=== PATIENT | male | born 1975 | race Caucasian/White ===

== ENCOUNTER → 2017-03-29 | Outpatient (CLI) | payer BC ==
[~2017-03-29] MED LIST: DICY20TA57 PO; HYOS0.1216 PO; OMEP40CA36 PO; ONDAN4ODT PO; PRD20T PO; SCR1T PO; TRM50T PO
--- NOTE | 2017-03-29 14:04 | Diagnostic Imaging Report ---
3 views of the right foot. INDICATION: Right foot injury. FINDINGS: There is a comminuted nondisplaced fracture involving the proximal phalanx of the right great toe. Fracture line extension to the first MTP joint is seen. There is also suggestion of fracture line extension into the interphalangeal joint. There is an elongated sclerotic lesion within the diaphysis of the first metatarsal measuring 1.7 CM in length probably related to a bony island. The joint alignment is satisfactory with no subluxation or dislocation. No radiopaque foreign body. IMPRESSION: Comminuted fracture of the proximal phalanx of the right great toe without displacement. There is however extension of the fracture lines to the MTP and the interphalangeal joints. The findings are called to Dee Gomez, nurse practitioner taking care of the patient by Dr. Salinas at time of dictation. Dictated by: Dictated on workstation # [id number]
== END ==
LOC: RAD 13:26
PROVIDERS: ATTEND Nurse Practitioner Family
DX: S92.411A Displaced fracture of proximal phalanx of right great toe, initial encounter for closed fracture (principal); X58.XXXA Exposure to other specified factors, initial encounter; Y99.8 Other external cause status
CPT/HCPCS: 73630

== ENCOUNTER 2019-08-16 13:37 | Emergency (ER) | payer BC ==
[~2019-08-16] VITALS: Ht 162 cm; Wt 111.7 kg
--- NOTE | 2019-08-16 14:17 | ED Psychosocial ---
General Chief Complaint: Substance Abuse Stated Complaint: PSYCH EVAL Nursing Triage Note: PT HAS BEEN IN CONTACT WITH [facility] IN [facility] AND WOULD LIKE TO GO THERE FOR ETOH TREATMENT. PLAN IS TO HAVE HIM THERE BY NOON TOMORROW. NEEDS MEDICAL CLEARENCE. Source: patient, family Exam Limitations: no limitations History of Present Illness Date Seen by Provider: Aug 16, 2019 Time Seen by Provider: 14:08 Initial Comments This 44-year-old white male presents with a history of long-term alcohol abuse. He is here requesting screening for treatment at [facility] in [place], [place]. Patient denies any current suicidal ideation. Patient has had no acute alcohol withdrawal symptoms. The patient denies recreational drugs other than alcohol. He is a nonsmoker. The patient has agreed to treatment for his alcohol abuse. Allergies and Home Medications Allergies Coded Allergies: famotidine (Verified Allergy, Mild, 04/05/13) Home Medications Dicyclomine Hcl 20 Mg Tablet, 1 EACH PO QID PRN, (Reported) Hyoscyamine Sulfate 0.125 Mg Tab, 1 EACH PO Q4HR PRN, (Reported) Omeprazole 40 Mg Capsule.dr, 40 MG PO DAILY Prescribed by: FOREIGN LOCKE on 04/05/132249 Ondansetron Hcl 4 Mg Tab, 4 MG PO Q4H, (Reported) Prednisone 20 Mg Tab, 40 MG PO DAILY Prescribed by: FOREIGN LOCKE on 04/05/13 233 Sucralfate 1 Gm/10 Ml Susp, 2 TSP PO ACHS Prescribed by: FOREIGN LOCKE on 04/05/132249 Tramadol Hcl 50 Mg Tab, 50 MG PO Q4H Prescribed by: FOREIGN LOCKE on 04/05/13 225 Patient Home Medication List Home Medication List Reviewed: Yes Review of Systems Constitutional: No chills, No fever; malaise EENTM: no symptoms reported Respiratory: No cough Cardiovascular: No chest pain Gastrointestinal: No abdominal pain, No diarrhea, No vomiting Genitourinary: No dysuria, No frequency Musculoskeletal: No back pain Skin: No rash Psychiatric/Neurological: See HPI Past Lzzgmoa-Lydiai-Ihhuga Hx Past Med/Social Hx: Reviewed Nursing Past Med/Soc Hx Patient Social History Alcohol Use: Regular Use Alcohol Beverage of Choice: Beer Recreational Drug Use: No Smoking Status: Never a Smoker Recent Foreign Travel: No Contact w/Someone Who Travel: No Recent Infectious Disease Expo: No Seasonal Allergies Seasonal Allergies: Yes Past Medical History Surgeries: Yes Vasectomy Respiratory: No Cardiac: Yes Hypertension Neurological: No Reproductive Disorders: No Sexually Transmitted Disease: No HIV/AIDS: No Genitourinary: No Gastrointestinal: Yes Gastroesophageal Reflux Musculoskeletal: No Endocrine: No HEENT: No Cancer: No Psychosocial: No Integumentary: Yes (h/o tattoos) Blood Disorders: No Family Medical History No Pertinent Family Hx Physical Exam Vital Signs - First Documented 08/16/19 13:51 Temp 36.9 Pulse 79 Resp 16 B/P (MAP) 201/120 (147) Pulse Ox 96 O2 Delivery Room Air Capillary Refill : Less Than 3 Seconds Height, Weight, BMI Height: '" Weight: lbs. oz. kg; 42.00 BMI Method: General Appearance: WD/WN, no apparent distress HEENT: normal ENT inspection Neck: full range of motion, supple Respiratory: normal breath sounds Cardiovascular: regular rate, rhythm Gastrointestinal: normal bowel sounds, non tender, soft Extremities: normal range of motion, non-tender Neurologic/Psychiatric: no motor/sensory deficits, alert, normal mood/affect Appearance/Memory: appropriate appearance, appropriate insight, neat Behavior/Eye Contact: cooperative, good eye contact, normal speech Thoughts/Hallucinations: normal thought pattern, no apparent hallucination Skin: normal color, warm/dry Progress/Results/Core Measures Results/Orders Lab Results Laboratory Tests Test 08/16/19 14:12 08/16/19 14:15 Range/Units White Blood Count 9.9 4.3-11.0 10^3/uL Red Blood Count 4.69 4.35-5.85 10^6/uL Hemoglobin 16.4 13.3-17.7 G/DL Hematocrit 47 40-54 % Mean Corpuscular Volume 99 80-99 FL Mean Corpuscular Hemoglobin 35 H 25-34 PG Mean Corpuscular Hemoglobin Concent 35 32-36 G/DL Red Cell Distribution Width 12.1 10.0-14.5 % Platelet Count 164 130-400 10^3/uL Mean Platelet Volume 9.7 7.4-10.4 FL Neutrophils (%) (Auto) 63 42-75 % Lymphocytes (%) (Auto) 25 12-44 % Monocytes (%) (Auto) 10 0-12 % Eosinophils (%) (Auto) 2 0-10 % Basophils (%) (Auto) 0 0-10 % Neutrophils # (Auto) 6.3 1.8-7.8 X 10^3 Lymphocytes # (Auto) 2.4 1.0-4.0 X 10^3 Monocytes # (Auto) 1.0 0.0-1.0 X 10^3 Eosinophils # (Auto) 0.2 0.0-0.3 10^3/uL Basophils # (Auto) 0.0 0.0-0.1 10^3/uL Sodium Level 141 135-145 MMOL/L Potassium Level 4.4 3.6-5.0 MMOL/L Chloride Level 104 98-107 MMOL/L Carbon Dioxide Level 23 21-32 MMOL/L Anion Gap 14 5-14 MMOL/L Blood Urea Nitrogen 10 7-18 MG/DL Creatinine 0.82 0.60-1.30 MG/DL Estimat Glomerular Filtration Rate > 60 BUN/Creatinine Ratio 12 Glucose Level 105 70-105 MG/DL Calcium Level 9.5 8.5-10.1 MG/DL Corrected Calcium 9.3 8.5-10.1 MG/DL Total Bilirubin 1.0 0.1-1.0 MG/DL Aspartate Amino Transf (AST/SGOT) 82 H 5-34 U/L Alanine Aminotransferase (ALT/SGPT) 114 H 0-55 U/L Alkaline Phosphatase 107 40-136 U/L Total Protein 7.5 6.4-8.2 GM/DL Albumin 4.3 3.2-4.5 GM/DL Salicylates Level < 5.0 L 5.0-20.0 MG/DL Acetaminophen Level < 10 L 10-30 UG/ML Serum Alcohol < 10 <10 MG/DL Urine Color YELLOW Urine Clarity CLEAR Urine pH 6.0 5-9 Urine Specific [employer] >=1.030 1.016-1.022 Urine Protein NEGATIVE NEGATIVE Urine Glucose (UA) NEGATIVE NEGATIVE Urine Ketones NEGATIVE NEGATIVE Urine Nitrite NEGATIVE NEGATIVE Urine Bilirubin NEGATIVE NEGATIVE Urine Urobilinogen 0.2 < = 1.0 MG/DL Urine Leukocyte Esterase NEGATIVE NEGATIVE Urine RBC (Auto) NEGATIVE NEGATIVE Urine RBC NONE /HPF Urine WBC NONE /HPF Urine Crystals NONE /LPF Urine Bacteria FEW H /HPF Urine Casts NONE /LPF Urine Mucus LARGE H /LPF Urine Culture Indicated NO Urine Opiates Screen NEGATIVE NEGATIVE Urine Oxycodone Screen NEGATIVE NEGATIVE Urine Methadone Screen NEGATIVE NEGATIVE Urine Propoxyphene Screen NEGATIVE NEGATIVE Urine Barbiturates Screen NEGATIVE NEGATIVE Ur Tricyclic Antidepressants Screen NEGATIVE NEGATIVE Urine Phencyclidine Screen NEGATIVE NEGATIVE Urine Amphetamines Screen NEGATIVE NEGATIVE Urine Methamphetamines Screen NEGATIVE NEGATIVE Urine Benzodiazepines Screen NEGATIVE NEGATIVE Urine Cocaine Screen NEGATIVE NEGATIVE Urine Cannabinoids Screen NEGATIVE NEGATIVE My Orders Orders - PAULIE WILBURN MD Cbc With Automated Diff (08/16/19 13:53) Comprehensive Metabolic Panel (08/16/19 13:53) Drug Screen Stat (Urine) (08/16/19 13:53) Ua Culture If Indicated (08/16/19 13:53) Ekg Tracing (08/16/19 13:53) Alcohol (08/16/19 14:59) Acetaminophen (08/16/19 14:59) Salicylate (08/16/19 14:59) Vital Signs/I&O 08/16/19 13:51 Temp 36.9 Pulse 79 Resp 16 B/P (MAP) 201/120 (147) Pulse Ox 96 O2 Delivery Room Air Blood Pressure Mean: 147 POS Progress Progress Note : Time: 14:58 Progress Note The patient's EKG demonstrated a normal sinus rhythm with a rate of 80. Patient's urine drug screen was negative. The patient's CBC and complete metabolic panel were unremarkable. Urinalysis was unremarkable. Patient's alcohol, Tylenol, and salicylate levels were normal. I spoke with the alcohol treatment program in [place] and they have accepted the patient for admission tomorrow morning. We will fax the emergency department physician record as well as the laboratory tests and EKG to [place] at this time. Departure Impression Primary Impression: Alcohol abuse Disposition: 01 HOME, SELF-CARE Condition: Unchanged Departure-Patient Inst. Decision time for Depature: 15:28 Referrals: LOBITO RODRIGUEZ MD (PCP/Family) Primary Care Physician Patient Instructions: ALCOHOL AND SUBSTANCE ABUSE Add. Discharge Instructions: Reports to [facility] for alcohol treatment tomorrow. Come back for any problems or questions. All discharge instructions reviewed with patient and/or family. Voiced understanding. PAULIE WILBURN MD Aug 16, 2019 14:17 POS
[2019-08-16 14:24] LABS: BILIRUBIN,URINE NEGATIVE (NEGATIVE); CLARITY,URINE CLEAR; COLOR,URINE YELLOW; GLUCOSE, URINE (UA) NEGATIVE (NEGATIVE); KETONES,URINE NEGATIVE (NEGATIVE); LEUKOCYTE ESTERASE ,URINE NEGATIVE (NEGATIVE); NITRITE,URINE NEGATIVE (NEGATIVE); PROTEIN,URINE NEGATIVE (NEGATIVE)
[2019-08-16 14:25] LABS: BASOPHILS % (AUTO) 0 % (0-10); EOSINOPHILS # (AUTO) 0.2 10^3/uL (0.0-0.3); EOSINOPHILS % (AUTO) 2 % (0-10); HEMATOCRIT 47 % (40-54); HEMOGLOBIN 16.4 G/DL (13.3-17.7); LYMPHOCYTES # (AUTO) 2.4 X 10^3 (1.0-4.0); LYMPHOCYTES % (AUTO) 25 % (12-44); MEAN CORPUSCULAR HEMOGLOBIN 35 PG (25-34); MEAN CORPUSCULAR HGB CONC 35 G/DL (32-36); MEAN CORPUSCULAR VOLUME 99 FL (80-99); MEAN PLATELET VOLUME 9.7 FL (7.4-10.4); MONOCYTES % (AUTO) 10 % (0-12); NEUTROPHILS # (AUTO) 6.3 X 10^3 (1.8-7.8); NEUTROPHILS % (AUTO) 63 % (42-75); PLATELET COUNT 164 10^3/uL (130-400); RED CELL DISTRIBUTION WIDTH 12.1 % (10.0-14.5); WHITE BLOOD COUNT 9.9 10^3/uL (4.3-11.0)
[2019-08-16 14:36] LABS: BACTERIA,URINE FEW /HPF
[2019-08-16 14:41] LABS: ALANINE AMINOTRANSFERASE 114 U/L (0-55); ALBUMIN 4.3 GM/DL (3.2-4.5); ALKALINE PHOSPHATASE 107 U/L (40-136); BUN/CREATININE RATIO 12; CALCIUM 9.5 MG/DL (8.5-10.1); CARBON DIOXIDE 23 MMOL/L (21-32); CHLORIDE 104 MMOL/L (98-107); CREATININE SERUM 0.82 MG/DL (0.60-1.30); GFR ESTIMATED > 60; GLUCOSE 105 MG/DL (70-105); POTASSIUM 4.4 MMOL/L (3.6-5.0); SODIUM 141 MMOL/L (135-145); TOTAL PROTEIN 7.5 GM/DL (6.4-8.2)
[2019-08-16 14:42] LABS: AMPHETAMINE SCREEN, URINE NEGATIVE (NEGATIVE); BARBITURATE SCREEN URINE NEGATIVE (NEGATIVE); BENZODIAZEPINES SCREEN URINE NEGATIVE (NEGATIVE); CANNABINOID SCREEN, URINE NEGATIVE (NEGATIVE); COCAINE SCREEN URINE NEGATIVE (NEGATIVE); METHADONE STAT NEGATIVE (NEGATIVE); METHAMPHETAMINE SCREEN URINE S NEGATIVE (NEGATIVE); OPIATE SCREEN URINE NEGATIVE (NEGATIVE); OXYCODONE STAT NEGATIVE (NEGATIVE); PROPOXYPHENE STAT NEGATIVE (NEGATIVE); TRICYCLIC ANTIDEPRESSANTS SCRE NEGATIVE (NEGATIVE)
[2019-08-16 15:14] LABS: SALICYLATE < 5.0 MG/DL (5.0-20.0)
[2019-08-16 15:15] LABS: ACETAMINOPHEN < 10 UG/ML (10-30)
[2019-08-16 15:39] VITALS: BP 165/88
== END 2019-08-16 15:39 | disposition home or self-care (01) ==
LOC: EDUNIT# 13:37 → ER 13:38
DX: F10.10 Alcohol abuse, uncomplicated (principal); I10 Essential (primary) hypertension; K21.9 Gastro-esophageal reflux disease without esophagitis; Z88.8 Allergy status to other drugs, medicaments and biological substances; Z79.52 Long term (current) use of systemic steroids; Y90.0 Blood alcohol level of less than 20 mg/100 ml
CPT/HCPCS: 36415; 80053; 80306; 80320; 80329; 81000; 85025; 93005

== ENCOUNTER 2022-03-26 08:55 | Emergency (ER) | payer BC ==
[~2022-03-26] VITALS: Ht 165 cm; Wt 111.0 kg
[2022-03-26] MEDS ORDERED: LORazepam 0.5 MG (ATIVAN) TABLET PO STA (09:53)
[2022-03-26] MEDS ORDERED: ONDANSETRON 4 MG/2 ML (SDV) Z0FRAN IVP ONE (10:00)
[2022-03-26] MEDS ORDERED: NS IV 1000 ML 1,000 ML IV SCH (10:00)
[2022-03-26 10:07] LABS: BASOPHILS % (AUTO) 0 % (0-10); EOSINOPHILS % (AUTO) 0 % (0-10); HEMATOCRIT 50 % (40-54); HEMOGLOBIN 17.8 g/dL (13.3-17.7); LYMPHOCYTES # (AUTO) 2.3 10^3/uL (1.0-4.0); LYMPHOCYTES % (AUTO) 30 % (12-44); MEAN CORPUSCULAR HEMOGLOBIN 35 pg (25-34); MEAN CORPUSCULAR HGB CONC 36 g/dL (32-36); MEAN CORPUSCULAR VOLUME 97 fL (80-99); MEAN PLATELET VOLUME 9.4 fL (9.0-12.2); MONOCYTES # (AUTO) 0.5 10^3/uL (0.0-1.0); MONOCYTES % (AUTO) 7 % (0-12); NEUTROPHILS # (AUTO) 4.8 10^3/uL (1.8-7.8); NEUTROPHILS % (AUTO) 63 % (42-75); PLATELET COUNT 179 10^3/uL (130-400); WHITE BLOOD COUNT 7.7 10^3/uL (4.3-11.0)
[2022-03-26 10:11] LABS: ALBUMIN 4.4 GM/DL (3.2-4.5); CHLORIDE 98 MMOL/L (98-107); POTASSIUM 3.7 MMOL/L (3.6-5.0); SODIUM 138 MMOL/L (135-145)
[2022-03-26 10:13] LABS: CALCIUM 8.9 MG/DL (8.5-10.1)
[2022-03-26 10:14] LABS: GLUCOSE 209 MG/DL (70-105); TOTAL PROTEIN 7.9 GM/DL (6.4-8.2)
[2022-03-26 10:15] LABS: CARBON DIOXIDE 19 MMOL/L (21-32)
[2022-03-26 10:16] LABS: BILIRUBIN,TOTAL 1.5 MG/DL (0.1-1.0)
[2022-03-26 10:18] LABS: ALKALINE PHOSPHATASE 126 U/L (40-136); CREATININE SERUM 1.12 MG/DL (0.60-1.30); GFR ESTIMATED 83
[2022-03-26 10:19] LABS: AMPHETAMINE SCREEN, URINE NEGATIVE (NEGATIVE); BARBITURATE SCREEN URINE NEGATIVE (NEGATIVE); BENZODIAZEPINES SCREEN URINE NEGATIVE (NEGATIVE); CANNABINOID SCREEN, URINE NEGATIVE (NEGATIVE); COCAINE SCREEN URINE NEGATIVE (NEGATIVE); METHADONE STAT NEGATIVE (NEGATIVE); OPIATE SCREEN URINE NEGATIVE (NEGATIVE); OXYCODONE STAT NEGATIVE (NEGATIVE); PROPOXYPHENE STAT NEGATIVE (NEGATIVE); TRICYCLIC ANTIDEPRESSANTS SCRE POSITIVE (NEGATIVE)
[2022-03-26 10:19] LABS: BUN/CREATININE RATIO 8
[2022-03-26 10:20] LABS: SALICYLATE < 5.0 MG/DL (5.0-20.0)
[2022-03-26 10:21] LABS: ALANINE AMINOTRANSFERASE 253 U/L (0-55)
[2022-03-26 10:28] LABS: ACETAMINOPHEN < 10 UG/ML (10-30)
--- NOTE | 2022-03-26 10:37 | ED Psychosocial ---
General Chief Complaint: Substance Abuse Stated Complaint: DETOX ALCOHOL USE,WEAKNESS,SOB Nursing Triage Note: PT TO ED W/ PARENT STATING HE'S "DETOXING". PT REPORTS LAST ALCOHOL INTAKE WAS "EARLY THIS MORNING" ET WAS "VODKA". PT A/OX3 AT THIS TIME, NO DISTRESS OR DISCOMFORT NOTED AT THIS TIME. Source: patient Exam Limitations: no limitations History of Present Illness Date Seen by Provider: Mar 26, 2022 Time Seen by Provider: 10:00 Initial Comments Patient is a 46-year-old male long history of chronic alcoholism with multiple stents at alcohol rehab, his dad states this may be his seventh. Comes in after having been on a 10-day streak of drinking 1/5 of vodka daily. He recently got out of [facility] in [place] about 3 weeks ago. He states he is not interested in going back to rehab. He denies suicidal ideation, auditory or visual hallucinations. He has never had a seizure related to alcohol withdrawal. No recent illnesses such as fevers, chills, cough or congestion. No black or bloody stools/diarrhea. No problems with urination. No severe headache. He has had a little nausea this morning. All other review of systems reviewed and negative except as stated. Associated Symptoms: anxiety Allergies and Home Medications Allergies Coded Allergies: famotidine (Verified Allergy, Mild, 04/05/13) Patient Home Medication List Home Medication List Reviewed: Yes Dicyclomine Hcl (Bentyl) 20 Mg Tablet, 1 EACH PO QID PRN, (Reported) Entered as Reported by: LAST [facility] on 04/05/132043 Hyoscyamine Sulfate (Levsin 0.125 Mg Tab) 0.125 Mg Tab, 1 EACH PO Q4HR PRN, (Reported) Entered as Reported by: LAST COX on 04/05/132043 Omeprazole (Omeprazole) 40 Mg Capsule.dr, 40 MG PO DAILY Prescribed by: FOREIGN LOCKE on 04/05/132249 Ondansetron (Ondansetron Odt) 8 Mg Tab.rapdis, 8 MG PO Q8H PRN for nausea Prescribed by: CHAITANYA WHITLEY on 03/26/22 1105 Ondansetron Hcl (Zofran Oral Dissolve) 4 Mg Tab, 4 MG PO Q4H, (Reported) Entered as Reported by: [facility]ST [facility] on 04/05/132043 Prednisone (Prednisone) 20 Mg Tab, 40 MG PO DAILY Prescribed by: FOREIGN LOCKE on 04/05/132329 Sucralfate (Carafate Susp) 1 Gm/10 Ml Susp, 2 TSP PO ACHS Prescribed by: FOREIGN LOCKE on 04/05/132249 Tramadol Hcl (Ultram) 50 Mg Tab, 50 MG PO Q4H Prescribed by: FOREIGN LOCKE on 04/05/132249 Review of Systems Constitutional: see HPI EENTM: no symptoms reported Respiratory: no symptoms reported Cardiovascular: no symptoms reported Gastrointestinal: nausea Genitourinary: no symptoms reported Musculoskeletal: no symptoms reported Skin: no symptoms reported Psychiatric/Neurological: Anxiety, Depressed, Emotional Problems, Tremors, Weakness All Other Systems Reviewed Negative Unless Noted: Yes Past Hyyshkj-Sxafjd-Zzyrwv Hx Patient Social History Tobacco Use?: Yes Tobacco type used: Cigarettes Smoking Status: Current Someday Smoker Use of E-Cig and/or Vaping dev: No Substance use?: No Alcohol Use?: Yes Alcohol type: Hard Liquor Alcohol Frequency: Daily Pt feels they are or have been: No Seasonal Allergies Seasonal Allergies: Yes Past Medical History Surgeries: Yes Vasectomy Respiratory: No Cardiac: Yes Hypertension Neurological: No Reproductive Disorders: No Sexually Transmitted Disease: No HIV/AIDS: No Genitourinary: No Gastrointestinal: Yes Gastroesophageal Reflux Musculoskeletal: No Endocrine: No HEENT: No Cancer: No Psychosocial: No Integumentary: Yes (h/o tattoos) Blood Disorders: No Family Medical History No Pertinent Family Hx Physical Exam Vital Signs - First Documented 03/26/22 09:05 Temp 35.2 Pulse 121 Resp 13 B/P (MAP) 130/88 (102) Pulse Ox 94 O2 Delivery Room Air Capillary Refill : Less Than 3 Seconds Height, Weight, BMI Height: '" Weight: lbs. oz. kg; 40.00 BMI Method: General Appearance: WD/WN, no apparent distress HEENT: PERRL/EOMI, other (Dry oral mucosa) Neck: normal inspection Respiratory: lungs clear, normal breath sounds, no respiratory distress, no accessory muscle use Cardiovascular: regular rate, rhythm, tachycardia Peripheral Pulses: 2+ Radial Pulses (R), 2+ Radial Pulses (L) Gastrointestinal: normal bowel sounds, soft (Protuberant); No tenderness Extremities: normal range of motion, normal inspection, no pedal edema Neurologic/Psychiatric: soap maker II-XII nml as tested, no motor/sensory deficits, alert, normal mood/affect, oriented x 3 Appearance/Memory: appropriate appearance, neat, no memory impairment Behavior/Eye Contact: cooperative, good eye contact, normal speech Thoughts/Hallucinations: normal thought pattern, no apparent hallucination; No auditory hallucinations, No delusions Skin: normal color, warm/dry Suicide Risk Suicide Risk Suicide Risk Level / RN Screen: Low Low Suicide Risk Level []Suicidal Ideation WITHOUT method, intent, plan or behavior more than a month ago []]Modifiable risk factors and strong protective factors []No reported history of suicidal ideation or behavior []Patient reports/exhibits symptoms consistent with psychosis []Patient reports a plan that would be unrealistic/impossible to complete and intent []Suicide attempt prior to arrival (Indicates at LEAST Low Suicide Risk, consider other risk factors) Moderate Suicide Risk Level: []Suicidal ideation with method, WITHOUT plan, intent or behavior in the past month []Multiple risk factors and few protective factors []Patient reports intent to follow through on plan to end life if allowed to leave hospital, and has attempted to elope from the hospital High Suicide Risk Level: [] Suicidal ideation with intent or intent with a plan in the past month [] Patient has harmed self or attempted suicide while in the hospital [] Patient has hx of or current Command Auditory hallucinations to harm self or others that they follow without hesitation [] Patient refuses to disclose plan, and indicates intent to complete [] Patient reports plan that is possible to accomplish and/or has means to complete Risk factors supporting recommendation: [] Non-compliance with treatment (acute or chronic) [] Patient has access to or owns firearms and/or stockpiled medications [] Hx Impulsive behavior [] Pending incarceration or homelessness [] Sexual abuse [] Family history and/or exposure to suicide [] Adverse childhood experiences [] Exposure to violence or negative socio-political cultural, and economic forces [] Current or hx of substance use/abuse [] Chronic physical pain or other acute medical problem (AIDS, COPD, Cancer, etc) [] Perceived burden on family or others [] Patient has attempted to elope [] Unable to answer and/or unable to identify [] Refuses to agree to a safety plan Protective Factors supporting recommendation: [] Identifies reasons for living [] Future plans/goals [] Engaged in work or School [] Good family support network [] Good social support network [] Responsibility to family [] Belief that suicide is immoral, against their scientology beliefs [] High spirituality and involvement in methodist community [] Fear of or dying due to pain and suffering [] Established outpt psychiatric services [] Unable to answer and/or unable to identify Risk Assessment Tool Score: Low Progress/Results/Core Measures Results/Orders Lab Results Laboratory Tests Test 03/26/22 09:15 03/26/22 09:18 Range/Units White Blood Count 7.7 4.3-11.0 10^3/uL Red Blood Count 5.11 4.30-5.52 10^6/uL Hemoglobin 17.8 H 13.3-17.7 g/dL Hematocrit 50 40-54 % Mean Corpuscular Volume 97 80-99 fL Mean Corpuscular Hemoglobin 35 H 25-34 pg Mean Corpuscular Hemoglobin Concent 36 32-36 g/dL Red Cell Distribution Width 13.7 10.0-14.5 % Platelet Count 179 130-400 10^3/uL Mean Platelet Volume 9.4 9.0-12.2 fL Immature Granulocyte % (Auto) 0 % Neutrophils (%) (Auto) 63 42-75 % Lymphocytes (%) (Auto) 30 12-44 % Monocytes (%) (Auto) 7 0-12 % Eosinophils (%) (Auto) 0 0-10 % Basophils (%) (Auto) 0 0-10 % Neutrophils # (Auto) 4.8 1.8-7.8 10^3/uL Lymphocytes # (Auto) 2.3 1.0-4.0 10^3/uL Monocytes # (Auto) 0.5 0.0-1.0 10^3/uL Eosinophils # (Auto) 0.0 0.0-0.3 10^3/uL Basophils # (Auto) 0.0 0.0-0.1 10^3/uL Immature Granulocyte # (Auto) 0.0 0.0-0.1 10^3/uL Sodium Level 138 135-145 MMOL/L Potassium Level 3.7 3.6-5.0 MMOL/L Chloride Level 98 98-107 MMOL/L Carbon Dioxide Level 19 L 21-32 MMOL/L Anion Gap 21 H 5-14 MMOL/L Blood Urea Nitrogen 9 7-18 MG/DL Creatinine 1.12 0.60-1.30 MG/DL Estimat Glomerular Filtration Rate 83 BUN/Creatinine Ratio 8 Glucose Level 209 H 70-105 MG/DL Calcium Level 8.9 8.5-10.1 MG/DL Corrected Calcium 8.6 8.5-10.1 MG/DL Total Bilirubin 1.5 H 0.1-1.0 MG/DL Aspartate Amino Transf (AST/SGOT) 264 H 5-34 U/L Alanine Aminotransferase (ALT/SGPT) 253 H 0-55 U/L Alkaline Phosphatase 126 40-136 U/L Total Protein 7.9 6.4-8.2 GM/DL Albumin 4.4 3.2-4.5 GM/DL Salicylates Level < 5.0 L 5.0-20.0 MG/DL Acetaminophen Level < 10 L 10-30 UG/ML Serum Alcohol 216 H <10 MG/DL Urine Opiates Screen NEGATIVE NEGATIVE Urine Oxycodone Screen NEGATIVE NEGATIVE Urine Methadone Screen NEGATIVE NEGATIVE Urine Propoxyphene Screen NEGATIVE NEGATIVE Urine Barbiturates Screen NEGATIVE NEGATIVE Ur Tricyclic Antidepressants Screen POSITIVE H NEGATIVE Urine Phencyclidine Screen NEGATIVE NEGATIVE Urine Amphetamines Screen NEGATIVE NEGATIVE Urine Methamphetamines Screen NEGATIVE NEGATIVE Urine Benzodiazepines Screen NEGATIVE NEGATIVE Urine Cocaine Screen NEGATIVE NEGATIVE Urine Cannabinoids Screen NEGATIVE NEGATIVE My Orders Orders - CHAITANYA WHITLEY MD Ed Iv/Invasive Line Start (03/26/22 09:53) Cbc With Automated Diff (03/26/22 09:53) Comprehensive Metabolic Panel (03/26/22 09:53) Alcohol (03/26/22 09:53) Drug Screen Stat (Urine) (03/26/22 09:53) Acetaminophen (03/26/22 09:53) Salicylate (03/26/22 09:53) Ekg Tracing (03/26/22 09:53) Ed Iv/Invasive Line Start (03/26/22 09:53) Monitor-Rhythm Ecg Trace Only (03/26/22 09:53) Bh Status Checks/Observation Q15M (03/26/22 09:53) Ed Iv/Invasive Line Start (03/26/22 09:53) Ns Iv 1000 Ml (Sodium Chloride 0.9%) (03/26/22 10:00) Ondansetron Injection (Zofran Injectio (03/26/22 10:00) Lorazepam Tablet (Ativan Tablet) (03/26/22 09:53) Medications Given in ED Current Medications Medications Dose Ordered Sig/Hector Route Start Time Stop Time Status Last Admin Dose Admin Ondansetron HCl 4 mg ONCE ONCE IVP 03/26/22 10:00 03/26/22 10:01 DC 03/26/22 09:59 4 MG Vital Signs/I&O 03/26/22 09:05 Temp 35.2 Pulse 121 Resp 13 B/P (MAP) 130/88 (102) Pulse Ox 94 O2 Delivery Room Air Blood Pressure Mean: 102 Progress Progress Note : Time: 11:00 Progress Note Had a long discussion with the patient with parents present. He is not quite ready to seek inpatient care again at this time. He is going to go home and talk about it with his mom and dad. Im going to send some Zofran to [facility] for him. I will give him some information on [facility]. I am also going to look up some other detox facilities for alcohol in the surrounding vicinity and provide that on his discharge paperwork. I talked to him at length about his elevated liver functions and the need to really watch his alcohol intake regarding potential damage done to his liver already. Return precautions provided. All questions are sought and answered. Initial ECG Impression Date: Mar 26, 2022 Initial ECG Impression Time: 10:04 Initial ECG Rate: 102 Initial ECG Rhythm: Normal Sinus Initial ECG Intervals: Normal Initial ECG Impression: Normal Departure Impression Primary Impression: Alcohol abuse Additional Impression: Alcoholic hepatitis without ascites Disposition: 01 HOME, SELF-CARE Condition: Improved Departure-Patient Inst. Decision time for Depature: 11:02 Referrals: NO,LOCAL PHYSICIAN (PCP/Family) Primary Care Physician Patient Instructions: LOCAL PHYSICIAN LIST, Effects of Alcohol on Your Health Add. Discharge Instructions: Drink plenty of fluids - water and electrolyte replacement to stay well hydrated. Zofran 8mg, every 8 hours as needed for nausea and upset stomach. An over the counter acid civil designer would be beneficial as well - such as pepcid, prilosec or zantac. Generic equivalent is fine. Please follow up with a primary care provider to monitor your liver functions. Consider AA Meetings and another In-Patient Treatment program for rehab. Return to the Emergency Department for any new, concerning or emergent complaints. AA meeting today 12:[address] [place], [place] [facility] [address] [place] [address] Scripts Chlordiazepoxide HCl (Chlordiazepoxide HCl) 25 Mg Capsule 25 MG PO Q8H, #12 CAP day 1 2 pills Q8h day 2 2 pills Q12h day 3 2 pills Qam Prov: CHAITANYA WHITLEY MD 03/26/22 Ondansetron (Ondansetron Odt) 8 Mg Tab.rapdis 8 MG PO Q8H PRN for nausea, #15 TAB Prov: CHAITANYA WHITLEY MD 03/26/22 CHAITANYA WHITLEY MD Mar 26, 2022 10:36
[2022-03-26] MEDS ORDERED: ONDA8TAB13 PO (11:05)
[2022-03-26 11:30] VITALS: BP 124/84
[2022-03-26] MEDS ORDERED: CHLO25CA10 PO (11:31)
== END 2022-03-26 11:30 | disposition home or self-care (01) ==
LOC: EDUNIT# 08:55 → ER 08:58
DX: F10.10 Alcohol abuse, uncomplicated (principal); K70.10 Alcoholic hepatitis without ascites; F17.210 Nicotine dependence, cigarettes, uncomplicated
CPT/HCPCS: 80053; 80306; 85025; 93005; 99284; G0480 ×3; 36415; 80320; 80329